=== PATIENT | male | born 1965 | race African-American/Black ===

== ENCOUNTER 2021-05-18 09:43 | Emergency (ER) | payer OTHER ==
[2021-05-18] MEDS ORDERED: Ketorolac Tromethamine 30 MG/ML VIAL ONE (11:29)
== END 2021-05-18 11:37 | disposition home or self-care (01) ==
LOC: ERS 09:43
DX: L02.416 Cutaneous abscess of left lower limb (principal); L02.818 Cutaneous abscess of other sites; E11.9 Type 2 diabetes mellitus without complications; G43.909 Migraine, unspecified, not intractable, without status migrainosus; F17.210 Nicotine dependence, cigarettes, uncomplicated
CPT/HCPCS: 87070; 87205; 96372; 99283; J1885

== ENCOUNTER 2021-10-14 05:55 | Emergency (ER) | payer OTHER ==
[2021-10-14] MEDS ORDERED: Ketorolac Tromethamine 30 MG/ML VIAL ONE (06:55)
== END 2021-10-14 07:08 | disposition home or self-care (01) ==
LOC: ERS 05:55
DX: S70.01XA Contusion of right hip, initial encounter (principal); S00.83XA Contusion of other part of head, initial encounter; I10 Essential (primary) hypertension; E11.9 Type 2 diabetes mellitus without complications; G40.909 Epilepsy, unspecified, not intractable, without status epilepticus; F17.210 Nicotine dependence, cigarettes, uncomplicated; V19.9XXA Pedal cyclist (driver) (passenger) injured in unspecified traffic accident, initial encounter; Z79.84 Long term (current) use of oral hypoglycemic drugs; Z79.899 Other long term (current) drug therapy
CPT/HCPCS: 36416; 70450; 70486; 72125; 72170; 96372; J1885

== ENCOUNTER 2023-06-29 02:23 | Emergency (ER) | payer OTHER | END 2023-06-29 03:08 | disposition home or self-care (01) | LOC: ERS 02:23 | DX: F14.10 Cocaine abuse, uncomplicated (principal); I10 Essential (primary) hypertension; E11.9 Type 2 diabetes mellitus without complications; F17.210 Nicotine dependence, cigarettes, uncomplicated; Z79.84 Long term (current) use of oral hypoglycemic drugs | CPT/HCPCS: 93005 ==

== ENCOUNTER 2024-02-12 19:46 | Inpatient (IN) | payer OTHER ==
[2024-02-12 21:06] LABS: #Basophils Less than 0.03 10x3/uL (0.0-0.2); %Basophils 0.5 % (0.0-1.0); %Eosinophils 1.4 % (0.0-10.0); %Lymphocytes 34.4 % (21.0-51.0); %Monocytes 14.4 % (0.0-10.0); %Neutrophils 49.1 % (42.0-75.0); Hematocrit 34.2 % (42.0-52.0); Hemoglobin 11.3 g/dL (14.0-18.0); Mean Corpuscular Hemoglobin 30.5 pg (27.0-31.0); Mean Corpuscular Volume 92.2 fL (78.0-98.0); Mean Platelet Volume 9.6 fL (7.4-10.4); Platelet Count 208 10x3/uL (130-400); Red Blood Cell (RBC) Count 3.71 mill/uL (4.70-6.10)
[2024-02-12 21:45] LABS: ALT (SGPT) 17 U/L (8-55); AST (SGOT) 28 U/L (5-34); Albumin 3.8 g/dL (3.5-5.0); Alkaline Phosphatase 71 U/L (40-110); Anion Gap 14 mmol/L (10-20); BUN (Urea Nitrogen) 11 mg/dL (8.4-25.7); Bilirubin, Total 0.7 mg/dL (0.2-1.2); Calc. Creatinine Clearance 0 mL/min (70-130); Calcium 9.4 mg/dL (7.8-10.44); Carbon Dioxide 20 mmol/L (22-29); Chloride 105 mmol/L (98-107); Estimated GFR 101; Glucose 157 mg/dL (70-105); Magnesium 1.7 mg/dL (1.6-2.6); Potassium 3.9 mmol/L (3.5-5.1); Protein, Total 7.8 g/dL (6.0-8.3); Sodium 135 mmol/L (136-145)
[2024-02-12 21:47] LABS: Troponin I 0.073 ng/mL (< 0.028)
[2024-02-12] MEDS ORDERED: Nitroglycerin 2% Ointment 1 INCH/1 GM Packet ONE (22:20)
[2024-02-12] MEDS ORDERED: Aspirin Chewable 81 MG TAB ONE (22:20)
[2024-02-12] MEDS ORDERED: Furosemide 40 MG (4 mL) VIAL ONE (22:20)
[2024-02-12] MEDS ORDERED: Ondansetron PF 4 MG/2 ML Vial IVP PRN (23:49)
[2024-02-12] MEDS ORDERED: Acetaminophen 650 MG Suppository PR PRN (23:49)
[2024-02-12] MEDS ORDERED: Ondansetron ODT 4 MG TAB PO PRN (23:49)
[2024-02-12] MEDS ORDERED: Acetaminophen 325 MG TAB PO PRN (23:49)
[2024-02-13 00:57] LABS: Troponin I 0.087 ng/mL (< 0.028)
[2024-02-13 03:34] LABS: #Basophils Less than 0.03 10x3/uL (0.0-0.2); %Basophils 0.3 % (0.0-1.0); %Eosinophils 2.6 % (0.0-10.0); %Lymphocytes 36.6 % (21.0-51.0); %Monocytes 15.6 % (0.0-10.0); %Neutrophils 44.6 % (42.0-75.0); Hematocrit 32.7 % (42.0-52.0); Hemoglobin 10.9 g/dL (14.0-18.0); Mean Corpuscular HGB CONC 33.3 g/dL (32.0-36.0); Mean Corpuscular Hemoglobin 30.1 pg (27.0-31.0); Mean Corpuscular Volume 90.3 fL (78.0-98.0); Platelet Count 173 10x3/uL (130-400); Red Blood Cell (RBC) Count 3.62 mill/uL (4.70-6.10)
[2024-02-13 04:08] LABS: Anion Gap 14 mmol/L (10-20); BUN (Urea Nitrogen) 12 mg/dL (8.4-25.7); Calc. Creatinine Clearance 118 mL/min (70-130); Calcium 9.1 mg/dL (7.8-10.44); Carbon Dioxide 23 mmol/L (22-29); Chloride 106 mmol/L (98-107); Estimated GFR 99; Glucose 229 mg/dL (70-105); Potassium 3.7 mmol/L (3.5-5.1); Sodium 139 mmol/L (136-145)
[2024-02-13 04:15] LABS: Troponin I 0.079 ng/mL (< 0.028)
[2024-02-13] MEDS ORDERED: Furosemide 40 MG (4 mL) VIAL ONE (06:30)
[2024-02-13] MEDS: Furosemide 40 MG (4 mL) VIAL SLOW IVP SCH (06:52)
[2024-02-13] MEDS: Carvedilol 3.125 MG TAB PO SCH (09:17)
[2024-02-13] MEDS ORDERED: Famotidine 20 MG TAB ONE (09:55)
[2024-02-13] MEDS: Famotidine 20 MG TAB PO SCH (10:11)
[2024-02-13] MEDS: Famotidine/PF 20 mg/2ml Vial SLOW IVP SCH (10:12)
[2024-02-13] MEDS ORDERED: HumaLOG 300 UNITS/3 ML VIAL SC PRN (10:30)
[2024-02-13] MEDS ORDERED: Glucagon 1 MG/ML KIT IM PRN (10:30)
[2024-02-13] MEDS ORDERED: Dextrose 50% Abboject 50 ML SYRINGE SLOW IVP PRN (10:30)
[2024-02-13] MEDS ORDERED: Dextrose 5% in Water 1,000 ML IV PRN (10:30)
[2024-02-13] MEDS ORDERED: Potassium Chloride 20 MEQ TAB ONE (12:47)
[2024-02-13] MEDS ORDERED: Enoxaparin 40 MG (0.4 mL) SYRINGE ONE (12:48)
[2024-02-13] MEDS ORDERED: Aspirin Chewable 81 MG TAB ONE (12:48)
[2024-02-13] MEDS: Aspirin 81 mg Enteric Coated Tablet PO SCH (12:55)
[2024-02-13] MEDS: Potassium Chloride 20 MEQ TAB PO SCH (12:59)
[2024-02-13] MEDS: Enoxaparin 40 MG (0.4 mL) SYRINGE SC SCH (12:59)
[2024-02-13] MEDS: Losartan 25 MG TAB PO SCH (14:36)
[2024-02-13 15:51] VITALS: BMI 27.1
[2024-02-13] MEDS: HumuLIN 70/30 100 Unit/ml 10 ml Vial SC SCH (17:56)
[2024-02-13] MEDS: Atorvastatin Calcium 10 MG TAB PO SCH (21:05)
[2024-02-14] MEDS: Acetaminophen 650 MG/20.3 ML UDCUP PO PRN (00:43)
[2024-02-14 05:23] LABS: Anion Gap 11 mmol/L (10-20); BUN (Urea Nitrogen) 15 mg/dL (8.4-25.7); Calc. Creatinine Clearance 121 mL/min (70-130); Calcium 9.1 mg/dL (7.8-10.44); Carbon Dioxide 26 mmol/L (22-29); Cardiac Risk 2.6 (Less than 4.5); Chloride 104 mmol/L (98-107); Cholesterol 161 mg/dl (< 200 Desired); Estimated GFR 100; Glucose 125 mg/dL (70-105); HDL Cholesterol 62 mg/dL (>60 Neg Risk); LDL Cholesterol, Calculated 91 mg/dL; Magnesium 1.6 mg/dL (1.6-2.6); Potassium 3.6 mmol/L (3.5-5.1); Sodium 137 mmol/L (136-145); Triglycerides 38 mg/dL (Less than 150)
[2024-02-14] MEDS: Enoxaparin 40 MG (0.4 mL) SYRINGE SC SCH (08:33)
[2024-02-14] MEDS: Aspirin 81 mg Enteric Coated Tablet PO SCH (08:34)
[2024-02-14] MEDS: Magnesium 2 GM/50 ML(in water) 2 GM in Premix 1 BAG IVPB SCH (09:32)
[2024-02-14] MEDS: Potassium Chloride 20 MEQ TAB PO SCH (09:32)
[2024-02-14] MEDS: Empagliflozin 10 MG TAB PO SCH (12:15)
[2024-02-14] MEDS: Insulin Lispro 100 UNIT/ML 10 ML VIAL SC PRN (12:25)
[2024-02-15 05:31] LABS: #Basophils Less than 0.03 10x3/uL (0.0-0.2); %Basophils 0.5 % (0.0-1.0); %Eosinophils 2.9 % (0.0-10.0); %Lymphocytes 33.2 % (21.0-51.0); %Monocytes 15.1 % (0.0-10.0); Hematocrit 37.6 % (42.0-52.0); Hemoglobin 12.7 g/dL (14.0-18.0); Mean Corpuscular HGB CONC 33.8 g/dL (32.0-36.0); Mean Corpuscular Hemoglobin 29.7 pg (27.0-31.0); Mean Corpuscular Volume 87.9 fL (78.0-98.0); Mean Platelet Volume 10.1 fL (7.4-10.4); Platelet Count 214 10x3/uL (130-400); Red Blood Cell (RBC) Count 4.28 mill/uL (4.70-6.10)
[2024-02-15 06:05] LABS: Anion Gap 12 mmol/L (10-20); BUN (Urea Nitrogen) 19 mg/dL (8.4-25.7); Calc. Creatinine Clearance 105 mL/min (70-130); Calcium 9.4 mg/dL (7.8-10.44); Carbon Dioxide 27 mmol/L (22-29); Chloride 102 mmol/L (98-107); Estimated GFR 94; Glucose 157 mg/dL (70-105); Magnesium 1.8 mg/dL (1.6-2.6); Potassium 3.6 mmol/L (3.5-5.1); Sodium 137 mmol/L (136-145)
[2024-02-15] MEDS: Empagliflozin 10 MG TAB PO SCH (08:41)
[2024-02-15] MEDS: Sacubitril 24MG/Valsartan 26 MG TAB PO SCH (08:41)
[2024-02-16] MEDS ORDERED: Electrolyte Replacement Protocol 1 EACH FS SCH (03:45)
[2024-02-16 05:10] LABS: Anion Gap 16 mmol/L (10-20); BUN (Urea Nitrogen) 23 mg/dL (8.4-25.7); Calc. Creatinine Clearance 107 mL/min (70-130); Calcium 9.7 mg/dL (7.8-10.44); Carbon Dioxide 25 mmol/L (22-29); Chloride 99 mmol/L (98-107); Estimated GFR 99; Glucose 99 mg/dL (70-105); Magnesium 1.9 mg/dL (1.6-2.6); Potassium 3.6 mmol/L (3.5-5.1); Sodium 136 mmol/L (136-145)
[2024-02-16] MEDS: Magnesium 2 GM/50 ML(in water) 2 GM in Premix 1 BAG IVPB SCH (09:29)
[2024-02-16] MEDS: Furosemide 20 MG TAB PO SCH (13:06)
[2024-02-17 05:25] LABS: Anion Gap 14 mmol/L (10-20); BUN (Urea Nitrogen) 25 mg/dL (8.4-25.7); Calc. Creatinine Clearance 96 mL/min (70-130); Calcium 9.5 mg/dL (7.8-10.44); Carbon Dioxide 25 mmol/L (22-29); Chloride 100 mmol/L (98-107); Estimated GFR 94; Glucose 101 mg/dL (70-105); Potassium 4.2 mmol/L (3.5-5.1); Sodium 135 mmol/L (136-145)
[2024-02-17] MEDS ORDERED: Communication Order-Pharmacy FS SCH (20:15)
[2024-02-18] MEDS: Sodium Chloride 0.9% 250 ML IV SCH
[2024-02-18 05:01] LABS: Anion Gap 14 mmol/L (10-20); BUN (Urea Nitrogen) 26 mg/dL (8.4-25.7); Calc. Creatinine Clearance 90 mL/min (70-130); Carbon Dioxide 23 mmol/L (22-29); Chloride 102 mmol/L (98-107); Estimated GFR 88; Glucose 131 mg/dL (70-105); Potassium 4.2 mmol/L (3.5-5.1); Sodium 135 mmol/L (136-145)
[2024-02-18] MEDS: Carvedilol 3.125 MG TAB PO SCH (09:12)
[2024-02-18] MEDS: Sacubitril 24MG/Valsartan 26 MG TAB PO SCH (09:12)
[2024-02-18] MEDS ORDERED: Heparin 10,000 UNITS/ 10 ML VIAL ONE (09:47)
[2024-02-18] MEDS ORDERED: Verapamil 5 MG/2 ML VIAL ONE (09:48)
[2024-02-18] MEDS ORDERED: Nitroglycerin 50 MG/250 ML BOT 250 ML ONE (09:49)
[2024-02-18] MEDS ORDERED: Midazolam HCl 2 mg/2 ml Vial ONE (12:08)
[2024-02-18] MEDS ORDERED: fentaNYL 50 mcg/mL 1 mL Vial ONE (12:08)
[2024-02-18] MEDS ORDERED: Sodium Chloride 0.9% 200 ML IV PRN (12:39)
[2024-02-18] MEDS ORDERED: Acetaminophen/Codeine 30-300mg Tablet PO PRN (12:39)
[2024-02-18] MEDS ORDERED: Nitroglycerin 0.4 MG TAB (25 Tab Bottle) SL PRN (12:39)
[2024-02-18] MEDS: Sodium Chloride 0.9% 500 ML IV SCH (15:45)
[2024-02-18] MEDS ORDERED: Insulin Lispro 100 UNIT/ML 10 ML VIAL SC PRN ×2 (21:43)
[2024-02-18] MEDS: Insulin Glargine 30 UNITS/0.3 ML VIAL SC SCH (22:56)
[2024-02-19 05:12] LABS: Anion Gap 13 mmol/L (10-20); BUN (Urea Nitrogen) 22 mg/dL (8.4-25.7); Calc. Creatinine Clearance 103 mL/min (70-130); Calcium 8.6 mg/dL (7.8-10.44); Carbon Dioxide 22 mmol/L (22-29); Chloride 104 mmol/L (98-107); Estimated GFR 99; Glucose 164 mg/dL (70-105); Potassium 4.2 mmol/L (3.5-5.1); Sodium 135 mmol/L (136-145)
[2024-02-19] MEDS: Clopidogrel Bisulfate 75 MG TAB PO SCH (09:12)
[2024-02-19 10:14] VITALS: BMI 23.7
[2024-02-19 15:05] VITALS: BP 120/77; TEMP 97.5
== END 2024-02-19 17:17 | DRG 286 ==
LOC: ERS 19:46 → EEVIPCON 19:46 → ERHOLD 22:46 → 2NO 02-13 01:05
PROVIDERS: ADMIT Internal Medicine; ATTEND Internal Medicine
PROC: B2111ZZ Fluoroscopy of Multiple Coronary Arteries using Low Osmolar Contrast (ICD-10-PCS; principal; 2024-02-18)
PROC: 4A023N7 Measurement of Cardiac Sampling and Pressure, Left Heart, Percutaneous Approach (ICD-10-PCS; 2024-02-18)
PROC: B2151ZZ Fluoroscopy of Left Heart using Low Osmolar Contrast (ICD-10-PCS; 2024-02-18)
DX: I11.0 Hypertensive heart disease with heart failure (principal); I50.23 Acute on chronic systolic (congestive) heart failure; R18.8 Other ascites; I07.1 Rheumatic tricuspid insufficiency; I37.1 Nonrheumatic pulmonary valve insufficiency; I42.0 Dilated cardiomyopathy; F17.210 Nicotine dependence, cigarettes, uncomplicated; F20.9 Schizophrenia, unspecified; E11.9 Type 2 diabetes mellitus without complications; F41.8 Other specified anxiety disorders; F14.90 Cocaine use, unspecified, uncomplicated; D64.9 Anemia, unspecified; Z98.890 Other specified postprocedural states; Z71.51 Drug abuse counseling and surveillance of drug abuser; Z91.148 Patient's other noncompliance with medication regimen for other reason; Z71.6 Tobacco abuse counseling; Z79.4 Long term (current) use of insulin
CPT/HCPCS: 36415; 36416; 71045; 80048; 80053; 80061; 83036; 83735; 83880; 84484; 85025; 93005; 93306; 93458; 93798; 96374; 99152; C1769; C1894; J1644; J1650; J1815; J1940; J2250; J3010; J3475; J7030